=== PATIENT | female | born 1955 ===

== ENCOUNTER 2020-12-19 10:00 | Inpatient (IN) | payer OTHER ==
[~2020-12-19] VITALS: Ht 160 cm; Wt 65.3 kg
[2020-12-19] MEDS ORDERED: COZAAR100 MG PO (12:30)
[2020-12-19] MEDS ORDERED: HYDROCHLOROTH12.5 MG PO (12:31)
[2020-12-28] MEDS ORDERED: HYOSCYAMINE0.125 M1 SL (12:06)
[2020-12-28] MEDS ORDERED: OXYC1TAB9 PO (12:07)
== END 2020-12-28 14:16 | disposition home or self-care (01) | DRG 331 ==
LOC: SURG 12-26 05:41 → O/R 12-26 05:41 → SURH 12-26 10:00 → EDBD 12-26 10:00 → SURH 12-26 10:15 → SURG 12-26 12:08 → SURH 12-27 15:52
PROVIDERS: ADMIT Surgery; ATTEND Surgery
PROC: 0DTN0ZZ Resection of Sigmoid Colon, Open Approach (ICD-10-PCS; 2020-12-26)
PROC: 07TC0ZZ Resection of Pelvis Lymphatic, Open Approach (ICD-10-PCS; 2020-12-26)
PROC: 3E0F7SF Introduction of Other Gas into Respiratory Tract, Via Natural or Artificial Opening (ICD-10-PCS; 2020-12-26)
PROC: 0DTP0ZZ Resection of Rectum, Open Approach (ICD-10-PCS; principal; 2020-12-26 10:15)
DX: C19 Malignant neoplasm of rectosigmoid junction (principal); N18.30 Chronic kidney disease, stage 3 unspecified; I11.9 Hypertensive heart disease without heart failure; Z20.822 Contact with and (suspected) exposure to COVID-19

== ENCOUNTER 2020-12-24 05:30 | Day surgery (SDC) | payer OTHER ==
[~2020-12-24 05:30] MED LIST: COZAAR100 MG PO; HYDROCHLOROTH12.5 MG PO
== END 2020-12-24 10:05 | disposition home or self-care (01) ==
LOC: EDBD → AMB-ENDOS 05:30
PROVIDERS: ATTEND Surgery
DX: K62.89 Other specified diseases of anus and rectum (principal); K64.8 Other hemorrhoids; Z20.822 Contact with and (suspected) exposure to COVID-19